=== PATIENT | male | born 1965 | race African-American/Black ===

== ENCOUNTER 2017-06-15 10:48 | Emergency (ER) | payer MEDICARE ==
[~2017-06-15] VITALS: Ht 190.5 cm; Wt 92.0 kg
[2017-06-15] MEDS ORDERED: DEPAKOTE (12:15)
[2017-06-15] MEDS ORDERED: PHEN32.43 PO (12:15)
[2017-06-15 12:16] VITALS: BP 110/84
[2017-06-15] MEDS ORDERED: KETOROLAC 60MG/2ML VIAL IM STA (16:08)
== END 2017-06-15 17:28 | disposition home or self-care (01) ==
LOC: ER 12:03
DX: M17.12 Unilateral primary osteoarthritis, left knee (principal)
CPT/HCPCS: 73560; 96372; 99284; J1885